=== PATIENT | male | born 1950 | race Caucasian/White ===

== ENCOUNTER 2018-01-31 09:39 | Emergency (ER) | payer BC ==
[~2018-01-31] VITALS: Ht 175.3 cm; Wt 93.0 kg
[~2018-01-31 09:39] MED LIST: AMAN100C16 PO; CARB-61 PO; LISI10TA5 PO; LOVA40TA75 PO; PRAM1TAB4 PO; TOPI100T11 PO
[2018-01-31 09:58] VITALS: BP_SYST 123
[2018-01-31] MEDS ORDERED: LIDOCAINE 1% 10 MG/ML, 20 ML MDV INJ ONE (10:45)
[2018-01-31] MEDS ORDERED: LIDOCAINE 1% 10 MG/ML, 20 ML MDV IJ ONE (10:45)
[2018-01-31] MEDS ORDERED: DIPH-TET-PERTUS Vaccine 0.5 ML VIAL (ADACEL) I.M. ONE (11:15)
[2018-01-31 12:00] VITALS: BP_SYST 130
== END 2018-01-31 12:00 | disposition home or self-care (01) ==
LOC: SED 09:39
DX: S01.01XA Laceration without foreign body of scalp, initial encounter (principal); E78.00 Pure hypercholesterolemia, unspecified; I10 Essential (primary) hypertension; Z79.899 Other long term (current) drug therapy; W18.09XA Striking against other object with subsequent fall, initial encounter; Y93.89 Activity, other specified; Y92.89 Other specified places as the place of occurrence of the external cause; Y99.8 Other external cause status
CPT/HCPCS: 12002; 99283; J2001

== ENCOUNTER 2018-02-02 12:48 | Emergency (ER) | payer BC ==
[~2018-02-02] VITALS: Ht 175.3 cm; Wt 93.0 kg
[2018-02-02 12:54] VITALS: BP_SYST 137
[2018-02-02 13:28] VITALS: BP_SYST 137
== END 2018-02-02 13:28 | disposition home or self-care (01) ==
LOC: SED 12:48
DX: S01.01XD Laceration without foreign body of scalp, subsequent encounter (principal); I10 Essential (primary) hypertension; E78.00 Pure hypercholesterolemia, unspecified; G20 Parkinson's disease; Z79.899 Other long term (current) drug therapy; W18.09XD Striking against other object with subsequent fall, subsequent encounter
CPT/HCPCS: 99281

== ENCOUNTER 2018-02-08 10:07 | Emergency (ER) | payer BC ==
[~2018-02-08] VITALS: Ht 175.3 cm; Wt 93.0 kg
[2018-02-08 10:13] VITALS: BP_SYST 131
[2018-02-08 10:30] VITALS: BP_SYST 131
== END 2018-02-08 10:30 | disposition home or self-care (01) ==
LOC: SED 10:07
DX: S01.01XD Laceration without foreign body of scalp, subsequent encounter (principal); E78.00 Pure hypercholesterolemia, unspecified; I10 Essential (primary) hypertension; G20 Parkinson's disease; Z79.899 Other long term (current) drug therapy; W18.09XD Striking against other object with subsequent fall, subsequent encounter
CPT/HCPCS: 99281

== ENCOUNTER 2023-11-26 13:20 | Emergency (ER) | payer BC, OTHER ==
[~2023-11-26] VITALS: Ht 177.8 cm; Wt 88.5 kg
[~2023-11-26 13:20] MED LIST changes: -AMAN100C16 PO; +AMAN100C19 PO; +LISI10TA29 PO; -LISI10TA5 PO
[2023-11-26 13:40] VITALS: BP_SYST 124; PULSE 76; RESP 20; TEMP 98.3; O2SAT 98
[2023-11-26 15:15] LABS: BASOPHILS % (AUTO) 0.4 % (0.0-2.0); EOSINOPHILS # (AUTO) 0.3 K/uL (0.0-0.4); EOSINOPHILS % (AUTO) 3.4 % (0.0-4.0); HEMATOCRIT 42.6 % (36-54); HEMOGLOBIN 14.3 g/dL (14.0-18.0); LYMPHOCYTES % (AUTO) 20.6 % (20.5-51.5); MEAN CORPUSCULAR HEMOGLOBIN 28 pg (27-31); MEAN CORPUSCULAR HGB CONC 34 % (32-36); MEAN CORPUSCULAR VOLUME 84 fL (79.0-98.0); MONOCYTES # (AUTO) 0.9 K/uL (0.0-1.0); MONOCYTES % (AUTO) 9.7 % (1.7-9.3); NEUTROPHILS # (AUTO) 6.3 K/uL (1.8-7.7); NEUTROPHILS % (AUTO) 65.9 % (40.0-70.0); PLATELET COUNT (AUTO) 247 K/uL (130-430); RED BLOOD CELL COUNT(AUTO) 5.07 MIL/uL (4.2-6.2); RED CELL DISTRIBUTION WIDTH 14.7 % (9.0-15.0); WHITE BLOOD COUNT (AUTO) 9.5 K/uL (4.8-10.8)
[2023-11-26 15:26] LABS: ALANINE AMINOTRANSFERASE 14 U/L (12-78); ALBUMIN 3.4 g/dL (3.4-4.8); ANION GAP 9 (5-15); ASPARTATE AMINOTRANSFERASE 50 U/L (10-37); CALCIUM 8.4 mg/dL (8.4-11.0); CARBON DIOXIDE 28 mmol/L (23-29); CHLORIDE 105 mmol/L (98-107); CREATININE 0.93 mg/dL (0.55-1.30); GLUCOSE 82 mg/dL (74-106); LIPASE 38 U/L (16-77); POTASSIUM 4.4 mmol/L (3.5-5.1); SODIUM SERUM 142 mmol/L (136-145); TOTAL BILIRUBIN 0.7 mg/dL (0.0-1.0); TOTAL PROTEIN, SERUM 7.1 g/dL (6.4-8.3); UREA NITROGEN, BLOOD 15 mg/dL (8-21)
[2023-11-26] MEDS: HYDROcodone/ACETAMIN 5-325 MG TAB (NORCO/ VICODIN) PO ONE (15:27)
[2023-11-26] MEDS ORDERED: HYDR-3921 PO (16:01)
[2023-11-26 16:13] VITALS: BP_SYST 124; PULSE 76; RESP 20; TEMP 98.3; O2SAT 98
== END 2023-11-26 16:13 | disposition home or self-care (01) ==
LOC: SED 13:20
DX: S22.42XA Multiple fractures of ribs, left side, initial encounter for closed fracture (principal); I25.10 Atherosclerotic heart disease of native coronary artery without angina pectoris; R10.9 Unspecified abdominal pain; R51.9 Headache, unspecified; I10 Essential (primary) hypertension; G20.A1 Parkinson's disease without dyskinesia, without mention of fluctuations; Z79.899 Other long term (current) drug therapy; W01.0XXA Fall on same level from slipping, tripping and stumbling without subsequent striking against object, initial encounter; Y93.89 Activity, other specified; Y92.89 Other specified places as the place of occurrence of the external cause; Y99.8 Other external cause status
CPT/HCPCS: 36415; 70450-TC; 71250-TC; 80053; 83690; 85025; 99284

== ENCOUNTER 2023-11-30 13:38 | Emergency (ER) | payer OTHER ==
[~2023-11-30] VITALS: Ht 177.8 cm; Wt 88.5 kg
[~2023-11-30 13:38] MED LIST changes: +HYDR-3921 PO
[2023-11-30 14:23] VITALS: BP_SYST 115; PULSE 80; RESP 18; TEMP 97.5; O2SAT 95
[2023-11-30] MEDS: MORPHINE 4 MG INJ. 4 MG/ML VIAL IM ONE (15:00)
[2023-11-30 15:21] LABS: BASOPHILS # (AUTO) 0.1 K/uL (0.0-0.2); BASOPHILS % (AUTO) 0.5 % (0.0-2.0); EOSINOPHILS # (AUTO) 0.2 K/uL (0.0-0.4); EOSINOPHILS % (AUTO) 2.3 % (0.0-4.0); HEMATOCRIT 43.8 % (36-54); HEMOGLOBIN 14.5 g/dL (14.0-18.0); LYMPHOCYTES # (AUTO) 1.6 K/uL (1.0-5.5); LYMPHOCYTES % (AUTO) 15.9 % (20.5-51.5); MEAN CORPUSCULAR HEMOGLOBIN 28 pg (27-31); MEAN CORPUSCULAR HGB CONC 33 % (32-36); MEAN CORPUSCULAR VOLUME 85 fL (79.0-98.0); MONOCYTES # (AUTO) 0.9 K/uL (0.0-1.0); MONOCYTES % (AUTO) 8.8 % (1.7-9.3); NEUTROPHILS # (AUTO) 7.4 K/uL (1.8-7.7); NEUTROPHILS % (AUTO) 72.5 % (40.0-70.0); PLATELET COUNT (AUTO) 283 K/uL (130-430); RED BLOOD CELL COUNT(AUTO) 5.16 MIL/uL (4.2-6.2); RED CELL DISTRIBUTION WIDTH 15.2 % (9.0-15.0); WHITE BLOOD COUNT (AUTO) 10.2 K/uL (4.8-10.8)
[2023-11-30 15:44] LABS: ALANINE AMINOTRANSFERASE 15 U/L (12-78); ALBUMIN 3.4 g/dL (3.4-4.8); ANION GAP 10 (5-15); ASPARTATE AMINOTRANSFERASE 57 U/L (10-37); BILIRUBIN,DIRECT 0.2 mg/dL (0.0-0.3); CARBON DIOXIDE 27 mmol/L (23-29); CHLORIDE 102 mmol/L (98-107); CREATININE 1.05 mg/dL (0.55-1.30); GLUCOSE 97 mg/dL (74-106); LIPASE 34 U/L (16-77); POTASSIUM 4.3 mmol/L (3.5-5.1); SODIUM SERUM 139 mmol/L (136-145); TOTAL BILIRUBIN 0.6 mg/dL (0.0-1.0); TOTAL PROTEIN, SERUM 7.7 g/dL (6.4-8.3); UREA NITROGEN, BLOOD 23 mg/dL (8-21)
[2023-11-30] MEDS: ONDANSETRON HCL 4 MG/2 ML VIAL IVP ONE (16:59)
[2023-11-30 18:29] LABS: BILIRUBIN,URINE NEGATIVE (NEGATIVE); BLOOD, URINE NEGATIVE (NEGATIVE); CLARITY/URINE CLEAR (CLEAR); COLOR,URINE YELLOW (YELLOW); GLUCOSE,URINE NEGATIVE (NEGATIVE); KETONES,URINE TRACE (NEGATIVE); LEUKOCYTE ESTERASE ,URINE NEGATIVE (NEGATIVE); NITRITE, URINE NEGATIVE (NEGATIVE); PROTEIN URINE NEGATIVE (NEGATIVE); UROBILINOGEN,URINE 0.2 (0.2-1.0)
[2023-11-30] MEDS ORDERED: HYDR-3927 PO (18:36)
[2023-12-09 18:50] VITALS: BP_SYST 115; PULSE 69; RESP 20; TEMP 97.5; O2SAT 99
== END 2023-11-30 18:50 | disposition home or self-care (01) ==
LOC: SED 13:38
DX: S22.32XA Fracture of one rib, left side, initial encounter for closed fracture (principal); R10.84 Generalized abdominal pain; G20.A1 Parkinson's disease without dyskinesia, without mention of fluctuations; I10 Essential (primary) hypertension; Z79.899 Other long term (current) drug therapy; W01.0XXA Fall on same level from slipping, tripping and stumbling without subsequent striking against object, initial encounter; Y93.89 Activity, other specified; Y92.89 Other specified places as the place of occurrence of the external cause; Y99.8 Other external cause status
CPT/HCPCS: 99285; 74177; 96374; 80076; 80048; 81001; 83690; 85025; 36415; 96372; 81003; J2405; J2270; Q9967